=== PATIENT | female | born 1990 | race Caucasian/White ===

== ENCOUNTER 2016-07-10 12:09 | Emergency (ER) | payer OTHER | END 2016-07-10 13:16 | disposition home or self-care (01) | LOC: SED 12:09 | DX: S91.205A Unspecified open wound of left lesser toe(s) with damage to nail, initial encounter (principal); F17.210 Nicotine dependence, cigarettes, uncomplicated; X58.XXXA Exposure to other specified factors, initial encounter; Y92.009 Unspecified place in unspecified non-institutional (private) residence as the place of occurrence of the external cause; Z23 Encounter for immunization | CPT/HCPCS: 11730; 90471; 90715; 99283 ==